=== PATIENT | female | born 1975 | race African-American/Black ===

== ENCOUNTER 2017-01-14 17:23 | Emergency (ER) | payer MEDICARE ==
[~2017-01-14] VITALS: Ht 172.7 cm; Wt 81.8 kg
[2017-01-14 17:41] VITALS: BP 140/94; PULSE 84; RESP 16; O2SAT 100
--- NOTE | 2017-01-14 19:31 | ED.REPORT ---
HPI-Back Pain 40 and Over Date of Service Jan 14, 2017 ED Provider: Luisito Martinez PA-C December is a 42-year-old female with history of bipolar disorder since his department via ambulance from a court ordered inpatient psychiatric facility. She is a difficult historian. Patient states that she fell out of bed 2 days ago onto the floor and has had back pain. Review of records from the facility indicate that she was initially mobile when she presented and has deteriorated since arrival. She rates the pain 0 out of 10 They report one incidence of incontinence of bowel and bladder. She admits pain in her right knee. Denies numbness, tingling, weakness in lower extremity. Denies fever, DM, HIV, organ transplant, immunosuppression, recent surgery, recent infection, history of back surgery, surgical implants and IV drug use. Denies denies urinary retention and saddle anesthesia. Nursing Notes Stated Complaint: BACK PAIN Chief Complaint: Back Pain or Injury Nursing Notes Reviewed: Yes General Time Seen by MD: 18:04 Chief Complaint Lumbar pain Sudden in Onset?: No Past Medical History Past Medical History Schizoaffective/bipolar disorder Review of Systems Negative unless stated otherwise in history of present illness Physical Exam General: Well appearing, well developed, well nourished, no acute distress. She holds a washcloth over her mouth because she says her teeth hurt. Head: Atraumatic, normocephalic. Eyes: No scleral icterus or injection. No discharge. Vision grossly intact. ENT: Voice clear, hearing grossly intact. Respiratory: Regular rate and rhythm. Breath sounds present, clear to auscultation and equal bilaterally. No respiratory distress. No increased work of breathing, speaks in complete sentences. Cardiovascular: Regular rate and rhythm, without murmur, gallop or rub. No pedal edema. Gastrointestinal: Abdomen flat and non-tender without guarding or rebound. Bowel sounds normoactive. Skin: Warm and dry. Rectum: Small amount of blood noted in sanitary brief. Patient states that she cut herself with a fingernail. Anus retains normal sensation, is normal to inspection. Normal rectal tone, no masses or tenderness noted. Neurological: Hip flexion, knee extension, ankle dorsiflexion and plantarflexion strength 5/5 B/L. Patellar and Achilles reflexes present and equal B/L. Sensation to sharp touch intact at medial leg, dorsal foot and lateral foot B/L. negative seated straight leg raise, negative seated cross straight leg raise. Psychological: Alert and oriented. Speech appropriate, linear and logical. Behavior appropriate. Initial Vital Signs Vital Signs (First) Date Time Temp Pulse Resp B/P Pulse Ox O2 Delivery O2 Flow Rate FiO2 01/14/17 17:41 37.1 84 16 140/94 100 Room Air Initial VS: Vital signs normal Re-Eval/Medical Decision Med Decision/Clinical Course 22-year-old female brought to the department from a [facility] inpatient [facility] facility with chief complaint of low back pain that began when she fell out of bed. Patient is a very difficult historian. Review of records indicate that she has had worsening back pain over the last 2 days. At this point she cannot stand or walk. She has had an episode of incontinence of bowel and bladder. Neurological examination is normal, with a question of weakness in quadriceps extension. The patient has difficulty participating in examination. Rectal examination reveals both normal tone and sensation. I discussed this case with Dr. Bownes as well as the radiologist international specialist, Dr. Reyes. Dr. Reyes advised a noncontrast lumbar MRI to rule out cauda equina. MRI did not show any evidence of a cord syndrome or any reason to explain her back pain. Her vitals are stable. She had a normal sensory and motor examination. She had significant pain so therefore she is provided with a walker. We will have her pain managed at the facility where she is currently residing. Consultation : Referral / Consult Name: Patrick Reyes MD Note: Discussed the case with Dr. Reyes, who recommended noncontrast lumbar spine MRI. Discharge & Departure Impression: Primary Impression: Low back pain Chronicity: acute Back pain laterality: midline Sciatica presence: with sciatica Sciatica laterality: sciatica laterality unspecified Qualified Code : M54.40 - Lumbago with sciatica, unspecified side Disposition: Home Patient Instructions: Low Back Strain (ED), Sciatica (ED), Lumbar Radiculopathy (ED) Additional Instructions: The MRI shows early L5 to S1 disc degeneration. No central canal or foraminal stenosis. You do have a 4.2 cm intramural uterine fibroid. No evidence of a cord syndrome or infection. No vertebral compression fractures. The cause of your symptoms is uncertain. Discuss pain management with the facility at which she were standing. Follow-up with primary care as well. Return if any problems or any worsening symptoms. Referrals: [facility] (PCP) [facility] Provider for APC: Beau Bowens DO Attending Statement I reviewed the MRI. I performed a physical examination. I concur with the plan. No evidence of acute cord syndrome. Luisito Martinez PA-C Jan 14, 2017 19:31 Beau Bowens DO Jan 14, 2017 22:12
[2017-01-14] MEDS ORDERED: LORazepam 1 mg Tablet PO ONE (20:30)
[2017-01-14 21:43] VITALS: BP 135/91; PULSE 79; RESP 16; O2SAT 100
[2017-01-14] MEDS ORDERED: Ondansetron 2 mg/mL 2 mL Inj ONE (21:43)
--- NOTE | 2017-01-14 21:46 | DRSVH ---
PROCEDURE: MRI LUMBAR SPINE WITHOUT CONTRAST ([id number]) INDICATIONS: 42 year-old female with low back pain and fecal incontinence. TECHNIQUE: Noncontrast sagittal T1 spin echo and T2 fast echo, sagittal STIR, axial T1 and T2 fast spin echo thr ough the lumbar spine. COMPARISON: None. FINDINGS: Image quality: Excellent. Alignment and Curvature: There is normal bony alignment, with lumbarization of the S1 level. Bone Marrow: Marrow is of normal overall signal. No vertebral body compression fractures. Spinal Cord: Conus medullaris terminates at the L1-L2 level. Visualized cord demonstrates normal si gnal and size. Paraspinous Soft Tissues: No paravertebral masses. Incompletely visualized anterior intramural uteri ne fibroid measures up to 4.2 cm. L1-L2: Normal appearance. L2-L3: Normal appearance. L3-L4: Normal appearance. L4-L5: Normal appearance. L5-S1: There is degenerative disc desiccation, without narrowing or bulge. No central canal or naida inal stenoses. IMPRESSION: 1. Early L5-S1 disc degeneration. No central canal or foraminal stenoses. 2. Incompletely visualized 4.2 cm anterior intramural uterine fibroid. Dictated by: Patrick Reyes M.D. on 01/14/2017 at 21:40 Approved by: Patrick Reyes M.D. on 01/14/2017 at 21:45
[2017-01-14 23:02] VITALS: BP 127/73; PULSE 86; RESP 16; O2SAT 98
[2017-01-15 01:08] VITALS: BP 127/73; PULSE 86; RESP 16; O2SAT 98
== END 2017-01-15 01:09 | disposition home or self-care (01) ==
LOC: EDBD 17:23 → SED 17:23
DX: M54.40 Lumbago with sciatica, unspecified side (principal)
CPT/HCPCS: 72148; 96372; 99284; J1885